=== PATIENT | female | born 1995 | race American Indian/Alaskan Native ===

== ENCOUNTER 2020-03-05 17:55 | Emergency (ER) | payer SELFPAY ==
[2020-03-05 18:16] VITALS: BP 127/83
--- NOTE | 2020-03-05 19:17 | Emergency Department Report ---
ED Recheck HPI - General Chief Complaint: Dyspnea/Respdistress Stated Complaint: SOB Time Seen by Provider: 03/05/20 19:14 Source: patient Mode of arrival: Ambulatory Limitations: No Limitations - History of Present Illness Initial Comments: pt is a 25 yo female who presents to the ED with c/o medication refill. she has a history of asthma. she states she has been out of her inhalers for one months. states she takes albuterol inhaler and flovent inhaler. states she feels SOB and wheezing at night. she denies cough, n/v/d, fever, CP, abd pain. no other PMHx. no allergies to meds. [facility] 02/25/2020. she is a non smoker. - Related Data Previous Rx's Medication Instructions Recorded Last Taken Type Azithromycin [Zithromax Z-STACY] 250 mg PO DAILY #6 tablet 06/20/14 Unknown Rx Ibuprofen [Motrin] 800 mg PO Q8H PRN #20 tablet 06/20/14 Unknown Rx Albuterol Sulfate [Proventil Hfa] 6.7 gm IH TID PRN #1 hfa.aer.ad 03/05/20 Unknown Rx Fluticasone Propionate [Flovent 10.6 gm IH BID #1 aer.w.adap 03/05/20 Unknown Rx Hfa] Allergies Allergy/AdvReac Type Severity Reaction Status Date / Time No Known Allergies Allergy Unverified 12/26/13 05:29 ED Review of Systems ROS: Stated complaint: SOB Other details as noted in HPI Comment: All other systems reviewed and negative ED Past Medical Hx - Past Medical History Previous Medical History?: No - Surgical History Past Surgical History?: Yes Additional Surgical History: Ortho - bone lengthening procedue 2011 - Social History Smoking Status: Never Smoker Substance Use Type: None - Medications Home Medications: Home Medications Medication Instructions Recorded Confirmed Last Taken Type Azithromycin [Zithromax Z-STACY] 250 mg PO DAILY #6 tablet 06/20/14 Unknown Rx Ibuprofen [Motrin] 800 mg PO Q8H PRN #20 tablet 06/20/14 Unknown Rx Albuterol Sulfate [Proventil Hfa] 6.7 gm IH TID PRN #1 hfa.aer.ad 03/05/20 Unknown Rx Fluticasone Propionate [Flovent 10.6 gm IH BID #1 aer.w.adap 03/05/20 Unknown Rx Hfa] ED Physical Exam - General Limitations: No Limitations General appearance: alert, in no apparent distress - Head Head exam: Present: atraumatic, normocephalic - Eye Eye exam: Present: normal appearance - ENT ENT exam: Present: mucous membranes moist - Respiratory Respiratory exam: Present: normal lung sounds bilaterally. Absent: respiratory distress, wheezes, rales, rhonchi, stridor, chest wall tenderness, accessory muscle use, decreased breath sounds, prolonged expiratory - Cardiovascular Cardiovascular Exam: Present: regular rate, normal rhythm, normal heart sounds. Absent: systolic murmur, diastolic murmur, rubs, gallop - Neurological Exam Neurological exam: Present: alert, oriented X3 - Psychiatric Psychiatric exam: Present: normal affect, normal mood - Skin Skin exam: Present: warm, dry, intact ED Course Vital Signs 03/05/20 18:14 Temperature 98.4 F Pulse Rate 96 H Respiratory 14 Rate Blood Pressure 127/83 O2 Sat by Pulse 96 Oximetry ED Recheck MDM - Medical Decision Making pt is a 25 yo female who presents to the ED with c/o medication refill. she has a history of asthma. she states she has been out of her inhalers for one months. states she takes albuterol inhaler and flovent inhaler. states she feels SOB and wheezing at night. she denies cough, n/v/d, fever, CP, abd pain. no other PMHx. no allergies to meds. [facility] 02/25/2020. she is a non smoker. Vitals are normal. Breath sounds are clear bilaterally, no wheezing, no rales, no rhonchi. She has no clinical signs of acute asthma exacerbation. She has no clinical signs of bacterial pneumonia or bronchitis. Patient given refill of her asthma medications. Advised patient Please take medication as prescribed. Follow-up with a primary care doctor. It is important that you follow-up for management of your chronic condition. Return to emergency room for any new or worsening symptoms. Critical care attestation.: If time is entered above; I have spent that time in minutes in the direct care of this critically ill patient, excluding procedure time. ED Disposition Clinical Impression: History of asthma, Medication refill Disposition: TO HOME OR SELFCARE Is pt being admited?: No Does the pt Need Aspirin: No Condition: Stable Instructions: Asthma, Adult Additional Instructions: Please take medication as prescribed. Follow-up with a primary care doctor. It is important that you follow-up for management of your chronic condition. Return to emergency room for any new or worsening symptoms. Prescriptions: Fluticasone Propionate [Flovent Hfa] 10.6 gm IH BID #1 aer.w.adap Albuterol Sulfate [Proventil Hfa] 6.7 gm IH TID PRN #1 hfa.aer.ad PRN Reason: Shortness Of Breath Referrals: RIK DUFFY MD [Staff Physician] - 2-3 Days [facility] [Provider Group] - 2-3 Days [facility], [LAB/CONTRACT] - 2-3 Days Time of Disposition: 19:18 Print Language: SLOVENIAN
== END 2020-03-05 20:36 | disposition home or self-care (01) ==
LOC: ED 17:55
DX: J45.909 Unspecified asthma, uncomplicated (principal); Z79.899 Other long term (current) drug therapy; Z76.0 Encounter for issue of repeat prescription; Z98.890 Other specified postprocedural states
CPT/HCPCS: 99282

== ENCOUNTER 2021-07-12 17:58 | Emergency (ER) | payer SELFPAY ==
[2021-07-12 18:35] VITALS: BP 110/84
--- NOTE | 2021-07-12 20:40 | Emergency Department Report ---
ED ENT HPI - General Chief complaint: Dental/Oral Stated complaint: SWOLLEN GUMS KNOT UNDER JAW Source: patient Mode of arrival: Ambulatory Limitations: No Limitations - History of Present Illness Initial comments: 26-year-old female presents to the ED complaining lower gum pain. Patient current has braces on her teeth. She states that she noticed gingival swelling x 2 days ago, states that she has an appointment tomorrow with her pickle pumper at [facility]. Patient denies any difficult swallowing, facial pain, drooling or headache at present time. Patient denies taking any lilu-frw-[id number] medication. Patient is alert and oriented x3. No acute distress noted. No ill appearance noted. - Related Data Previous Rx's Medication Instructions Recorded Last Taken Type Azithromycin [Zithromax Z-STACY] 250 mg PO DAILY #6 tablet 06/20/14 Unknown Rx Ibuprofen [Motrin] 800 mg PO Q8H PRN #20 tablet 06/20/14 Unknown Rx Albuterol Sulfate [Proventil Hfa] 6.7 gm IH TID PRN #1 hfa.aer.ad 03/05/20 Unknown Rx Fluticasone Propionate [Flovent 10.6 gm IH BID #1 aer.w.adap 03/05/20 Unknown Rx Hfa] Fluconazole [Diflucan TAB] 200 mg PO QDAY 2 Days #2 tablet 07/12/21 Unknown Rx Ibuprofen [Motrin] 800 mg PO Q8HR PRN 15 Days #30 07/12/21 Unknown Rx tablet Penicillin V Potassium 500 mg PO BID 10 Days #20 tab 07/12/21 Unknown Rx Allergies Allergy/AdvReac Type Severity Reaction Status Date / Time No Known Allergies Allergy Unverified 12/26/13 05:29 ED Dental HPI - General Chief complaint: Dental/Oral Stated complaint: SWOLLEN GUMS KNOT UNDER JAW Source: patient Mode of arrival: Ambulatory Limitations: No Limitations - Related Data Previous Rx's Medication Instructions Recorded Last Taken Type Azithromycin [Zithromax Z-STACY] 250 mg PO DAILY #6 tablet 06/20/14 Unknown Rx Ibuprofen [Motrin] 800 mg PO Q8H PRN #20 tablet 06/20/14 Unknown Rx Albuterol Sulfate [Proventil Hfa] 6.7 gm IH TID PRN #1 hfa.aer.ad 03/05/20 Unknown Rx Fluticasone Propionate [Flovent 10.6 gm IH BID #1 aer.w.adap 03/05/20 Unknown Rx Hfa] Fluconazole [Diflucan TAB] 200 mg PO QDAY 2 Days #2 tablet 07/12/21 Unknown Rx Ibuprofen [Motrin] 800 mg PO Q8HR PRN 15 Days #30 07/12/21 Unknown Rx tablet Penicillin V Potassium 500 mg PO BID 10 Days #20 tab 07/12/21 Unknown Rx Allergies Allergy/AdvReac Type Severity Reaction Status Date / Time No Known Allergies Allergy Unverified 12/26/13 05:29 ED Review of Systems ROS: Stated complaint: SWOLLEN GUMS KNOT UNDER JAW Other details as noted in HPI Constitutional: denies: chills, fever Eyes: denies: eye pain, eye discharge, vision change ENT: denies: ear pain, throat pain Respiratory: denies: cough, shortness of breath, wheezing Cardiovascular: denies: chest pain, palpitations Endocrine: no symptoms reported Gastrointestinal: denies: abdominal pain, nausea, diarrhea Genitourinary: denies: urgency, dysuria, discharge Musculoskeletal: denies: back pain, joint swelling, arthralgia Skin: denies: rash, lesions Neurological: denies: headache, weakness, paresthesias Psychiatric: denies: anxiety, depression Hematological/Lymphatic: denies: easy bleeding, easy bruising ED Past Medical Hx - Surgical History Additional Surgical History: Ortho - bone lengthening procedue 2012 - Social History Smoking Status: Never Smoker Substance Use Type: None - Medications Home Medications: Home Medications Medication Instructions Recorded Confirmed Last Taken Type Azithromycin [Zithromax Z-STACY] 250 mg PO DAILY #6 tablet 06/20/14 Unknown Rx Ibuprofen [Motrin] 800 mg PO Q8H PRN #20 tablet 06/20/14 Unknown Rx Albuterol Sulfate [Proventil Hfa] 6.7 gm IH TID PRN #1 hfa.aer.ad 03/05/20 Unknown Rx Fluticasone Propionate [Flovent 10.6 gm IH BID #1 aer.w.adap 03/05/20 Unknown Rx Hfa] Fluconazole [Diflucan TAB] 200 mg PO QDAY 2 Days #2 tablet 07/12/21 Unknown Rx Ibuprofen [Motrin] 800 mg PO Q8HR PRN 15 Days #30 07/12/21 Unknown Rx tablet Penicillin V Potassium 500 mg PO BID 10 Days #20 tab 07/12/21 Unknown Rx ED Physical Exam - General Limitations: No Limitations General appearance: alert, in no apparent distress - Head Head exam: Present: atraumatic, normocephalic - Eye Eye exam: Present: normal appearance - ENT ENT exam: Present: mucous membranes moist - Expanded ENT Exam Expanded Teeth exam: Present: other (Gingival tenderness and erythema to the lower gum area) - Neck Neck exam: Present: normal inspection - Respiratory Respiratory exam: Present: normal lung sounds bilaterally. Absent: respiratory distress - Cardiovascular Cardiovascular Exam: Present: regular rate, normal rhythm. Absent: systolic murmur, diastolic murmur, rubs, gallop - GI/Abdominal GI/Abdominal exam: Present: soft, normal bowel sounds - Extremities Exam Extremities exam: Present: normal inspection - Back Exam Back exam: Present: normal inspection - Neurological Exam Neurological exam: Present: alert, oriented X3 - Psychiatric Psychiatric exam: Present: normal affect, normal mood - Skin Skin exam: Present: warm, dry, intact, normal color. Absent: rash ED Course Vital Signs 07/12/21 18:33 Temperature 98.5 F Pulse Rate 101 H Respiratory 18 Rate Blood Pressure 110/84 [Right] O2 Sat by Pulse 98 Oximetry ED Medical Decision Making - Medical Decision Making 26-year-old female presents to the ED complaining lower gum pain. Patient current has braces on her teeth. She states that she noticed gingival swelling x 2 days ago, states that she has an appointment tomorrow with her pickle pumper at [facility]. Patient denies any difficult swallowing, facial pain, drooling or headache at present time. Patient denies taking any flwy-inx-cxlengl medication. Patient is alert and oriented x3. No acute distress noted. No ill appearance noted. Physical examination showed gingival tenderness and erythema to the lower gum area. Patient is to see pickle pumper tomorrow. Patient on some antibiotic. Rechecked the patient is resting quietly quietly and comfortable and feeling better. I discussed the results of diagnostic study, my clinical impression and the plan for further treatment with the patient. Patient agrees with plan and discharge at this present time. All question addressed. I have given the patient instruction regarding a diagnosis ,expectation ,follow- up and return precaution. I explained to the patient that emergent condition may arise and to return to the ED for new worsen and any new persisting condition. I have explained the importance of following up with the primary care physician or referral physician listed below has instructed. The patient verbalized understanding of discharge instruction. Critical care attestation.: If time is entered above; I have spent that time in minutes in the direct care of this critically ill patient, excluding procedure time. ED Disposition Clinical Impression: Pain in gums Disposition: HOME / SELF CARE / HOMELESS Is pt being admited?: No Does the pt Need Aspirin: No Condition: Stable Instructions: Preventive Dental Care, Adult, Diet and Dental Disease Additional Instructions: Keep appointment with pickle pumper tomorrow Return to the ED for any worsening symptoms Prescriptions: Fluconazole [Diflucan TAB] 200 mg PO QDAY 2 Days #2 tablet Ibuprofen [Motrin] 800 mg PO Q8HR PRN 15 Days #30 tablet PRN Reason: Pain, Moderate (4-6) Penicillin V Potassium 500 mg PO BID 10 Days #20 tab Referrals: [facility] [Outside] - 3-5 Days Forms: Work/School Release Form(ED)
== END 2021-07-12 21:06 | disposition home or self-care (01) ==
LOC: ED 17:58
DX: K08.89 Other specified disorders of teeth and supporting structures (principal)
CPT/HCPCS: 99282

== ENCOUNTER 2021-08-24 18:40 | Emergency (ER) | payer SELFPAY ==
[2021-08-24 19:55] VITALS: BP 124/74
== END 2021-08-25 07:00 | disposition left against medical advice (07) ==
LOC: ED 18:40
DX: R06.02 Shortness of breath (principal); Z53.21 Procedure and treatment not carried out due to patient leaving prior to being seen by health care provider

== ENCOUNTER 2021-11-23 06:21 | Emergency (ER) | payer SELFPAY ==
[2021-11-23 06:47] VITALS: BP 128/84
[2021-11-23] MEDS ORDERED: LIDOCAINE VISCOUS 2% 15 ML ORAL LIQD PO ONE (11:02)
[2021-11-23] MEDS ORDERED: ALUM-MAG HYDROXIDE-SIMETHICONE 200-200-20MG/5ML ORAL LIQD 30 ML PO ONE (11:02)
[2021-11-23] MEDS ORDERED: DICYCLOMINE 10 MG/5 ML ORAL LIQD PO ONE (11:24)
--- NOTE | 2021-11-23 11:36 | Emergency Department Report ---
ED Abdominal Pain HPI - General Chief Complaint: Abdominal Pain Stated Complaint: ABDOMINAL PAIN Time Seen by Provider: 11/23/21 10:48 Source: patient Mode of arrival: Ambulatory Limitations: No Limitations - History of Present Illness Initial Comments: 26-year-old black female with a past medical history of asthma presents to the emergency department for evaluation of epigastric burning. She states that for the past several days she has been taking multiple doses of ibuprofen for her headache and then last night she started to have burning in her epigastric area of her stomach. She states that headache has improved but her burning has been persistent. She denies fever, dysuria, nausea, vomiting, and diarrhea. She is also requesting a refill of her albuterol inhaler. MD Complaint: abdominal pain -: Gradual, days(s) (1) Location: epigastric Radiation: none Migration to: no migration, epigastric Severity scale (0 -10): 0 Quality: burning Consistency: intermittent Associated Symptoms: denies: nausea, vomiting, diarrhea, fever, chills, dysuria, hematemesis, hematochezia, melena, hematuria, anorexia, syncope - Related Data LMP Date: 11/18/21 Previous Rx's Medication Instructions Recorded Last Taken Type Azithromycin [Zithromax Z-STACY] 250 mg PO DAILY #6 tablet 06/20/14 Unknown Rx Ibuprofen [Motrin] 800 mg PO Q8H PRN #20 tablet 06/20/14 Unknown Rx Albuterol Sulfate [Proventil Hfa] 6.7 gm IH TID PRN #1 hfa.aer.ad 03/05/20 Unknown Rx Fluticasone Propionate [Flovent 10.6 gm IH BID #1 aer.w.adap 03/05/20 Unknown Rx Hfa] Fluconazole [Diflucan TAB] 200 mg PO QDAY 2 Days #2 tablet 07/12/21 Unknown Rx Ibuprofen [Motrin] 800 mg PO Q8HR PRN 15 Days #30 07/12/21 Unknown Rx tablet Penicillin V Potassium 500 mg PO BID 10 Days #20 tab 07/12/21 Unknown Rx Albuterol Mdi (or & Nicu Only) 2 puff IH QID PRN #8.5 gram 11/23/21 Unknown Rx [ProAir HFA Inhaler] Allergies Allergy/AdvReac Type Severity Reaction Status Date / Time No Known Allergies Allergy Unverified 12/26/13 05:29 ED Review of Systems ROS: Stated complaint: ABDOMINAL PAIN Other details as noted in HPI Comment: All other systems reviewed and negative Constitutional: denies: chills, fever, malaise, weakness Eyes: denies: eye pain, eye discharge, vision change ENT: denies: throat pain, hearing loss, congestion Respiratory: denies: cough, shortness of breath, SOB with exertion, SOB at rest, stridor, wheezing Cardiovascular: denies: chest pain, palpitations Gastrointestinal: abdominal pain. denies: nausea, vomiting, diarrhea, hematemesis, melena, hematochezia Genitourinary: denies: urgency, dysuria Musculoskeletal: denies: back pain Skin: denies: rash, lesions Neurological: denies: headache, weakness ED Past Medical Hx - Past Medical History Previous Medical History?: Yes Hx Asthma: Yes - Surgical History Past Surgical History?: Yes Additional Surgical History: Ortho - bone lengthening procedue 2011 - Social History Smoking Status: Never Smoker Substance Use Type: None - Medications Home Medications: Home Medications Medication Instructions Recorded Confirmed Last Taken Type Azithromycin [Zithromax Z-STACY] 250 mg PO DAILY #6 tablet 06/20/14 Unknown Rx Ibuprofen [Motrin] 800 mg PO Q8H PRN #20 tablet 06/20/14 Unknown Rx Albuterol Sulfate [Proventil Hfa] 6.7 gm IH TID PRN #1 hfa.aer.ad 03/05/20 Unknown Rx Fluticasone Propionate [Flovent 10.6 gm IH BID #1 aer.w.adap 03/05/20 Unknown Rx Hfa] Fluconazole [Diflucan TAB] 200 mg PO QDAY 2 Days #2 tablet 07/12/21 Unknown Rx Ibuprofen [Motrin] 800 mg PO Q8HR PRN 15 Days #30 07/12/21 Unknown Rx tablet Penicillin V Potassium 500 mg PO BID 10 Days #20 tab 07/12/21 Unknown Rx Albuterol Mdi (or & Nicu Only) 2 puff IH QID PRN #8.5 gram 11/23/21 Unknown Rx [ProAir HFA Inhaler] ED Physical Exam - General Limitations: No Limitations General appearance: alert, in no apparent distress - Head Head exam: Present: atraumatic, normocephalic - Eye Eye exam: Present: normal appearance. Absent: conjunctival injection - Neck Neck exam: Present: normal inspection, full ROM. Absent: tenderness, lymphadenopathy - Respiratory Respiratory exam: Present: normal lung sounds bilaterally. Absent: respiratory distress, wheezes, rales, rhonchi, stridor, chest wall tenderness - Cardiovascular Cardiovascular Exam: Present: regular rate, normal heart sounds - GI/Abdominal GI/Abdominal exam: Present: soft, normal bowel sounds. Absent: distended, tenderness, guarding, rebound, rigid - Extremities Exam Extremities exam: Present: normal inspection, full ROM, normal capillary refill. Absent: pedal edema, joint swelling, calf tenderness - Back Exam Back exam: Present: normal inspection. Absent: CVA tenderness (R), CVA tenderness (L) - Neurological Exam Neurological exam: Present: alert, oriented X3 - Psychiatric Psychiatric exam: Present: normal affect, normal mood - Skin Skin exam: Present: warm, dry, intact, normal color ED Course Vital Signs 11/23/21 06:43 Temperature 97.9 F Pulse Rate 90 Respiratory 16 Rate Blood Pressure 128/84 [Right] O2 Sat by Pulse 99 Oximetry ED Medical Decision Making - Medical Decision Making 26-year-old black female with a past medical history of asthma presents to the emergency department for evaluation of epigastric burning. She states that for the past several days she has been taking multiple doses of ibuprofen for her headache and then last night she started to have burning in her epigastric area of her stomach. She states that headache has improved but her burning has been persistent. She denies fever, dysuria, nausea, vomiting, and diarrhea. She is also requesting a refill of her albuterol inhaler. Physical exam unremarkable. Symptoms resolved after medication. Patient will be discharged home with refill for albuterol inhaler as requested and advised to follow-up with her primary care provider if worsening symptoms. She is advised to return to the emergency department as needed. She verbalizes understanding of and agreement with plan of care. Critical care attestation.: If time is entered above; I have spent that time in minutes in the direct care of this critically ill patient, excluding procedure time. ED Disposition Clinical Impression: Epigastric pain, Medication refill Disposition: HOME / SELF CARE / HOMELESS Is pt being admited?: No Does the pt Need Aspirin: No Condition: Stable Instructions: Abdominal Pain (ED), Heartburn, [id number] Additional Instructions: Take medications as prescribed. Follow-up with your primary care provider for worsening symptoms. Return to the emergency department as needed. Prescriptions: Albuterol Mdi (or & Nicu Only) [ProAir HFA Inhaler] 2 puff IH QID PRN #8.5 gram PRN Reason: Shortness Of Breath Referrals: RIK DUFFY MD [Staff Physician] - 3-5 Days Time of Disposition: 11:37
[2021-11-23] MEDS ORDERED: DICYCLOMINE 10 MG/5 ML ORAL LIQD PO SCH (14:00)
== END 2021-11-23 12:08 | disposition home or self-care (01) ==
LOC: ED 06:21
DX: R10.13 Epigastric pain (principal); Z76.0 Encounter for issue of repeat prescription; J45.909 Unspecified asthma, uncomplicated
CPT/HCPCS: 99282